=== PATIENT | female | born 1960 | race Caucasian/White ===

== ENCOUNTER 2016-10-17 05:43 | Emergency (ER) | payer OTHER ==
[~2016-10-17] VITALS: Wt 70.5 kg
[~2016-10-17 05:43] MED LIST: ALBU18HF INHALATION; AZIT250T94 PO; NO MEDS; PRED20TA PO
[2016-10-17] MEDS ORDERED: ALBUTEROL 0.5% (NEB) 2.5 MG/0.5 ML AMP INH STA ×2 (06:06→07:50)
[2016-10-17] MEDS ORDERED: predniSONE 20 MG TAB PO STA (06:06)
[2016-10-17] MEDS ORDERED: IPRATROPIUM (NEB) 0.5 MG/2.5 ML AMP INH STA (06:06)
[2016-10-17] MEDS ORDERED: ACETAMINOPHEN 500 MG TAB PO STA (06:13)
--- NOTE | 2016-10-17 06:13 | ERD ---
ER Documentation Chief Complaint Date/Time DATE: 10/17/16 TIME: 06:09 Chief Complaint SOB and cough since yesterday 0900 HPI This is a 55-year-old female who presents the emergency department today complaining of cough for 2 weeks and feeling some shortness of breath. Patient states that she saw her primary care doctor on October 13 and was given promethazine , and inhaler and loratadine. States that she has had no improvement. States he also feels some nasal congestion. Denies any fevers or chills. Denies any prolonged travel. Denies any calf pain. Denies any calf pain. Denies any recent sick contacts. ROS All systems reviewed and are negative except as per history of present illness. Medications Home Meds Active Scripts Acetaminophen* (Tylophen*) 500 Mg Capsule, 1 CAP PO Q6H Y for PAIN AND OR ELEVATED TEMP, #30 CAP Prov:SUNITA GONSALVES-C 10/17/16 Prednisone* (Prednisone*) 20 Mg Tab, 40 MG PO DAILY for 4 Days, TAB Prov:SUNITA GONSALVES-C 10/17/16 Cetirizine Hcl* (Zyrtec*) 10 Mg Capsule, 10 MG PO DAILY, #14 TAB.CHEW Prov:SUNITA GONSALVES PA-C 10/17/16 Fluticasone Propionate (Flonase Allergy Relief) 9.9 Ml [place].susp, 2 SPRAY NASAL DAILY, #1 BOTTLE TO EACH NOSTRIL Prov:SUNITA GONSALVESC 10/17/16 Guaifenesin-Dextromethorphan* (Robitussin* DM) 100MG/10MG/5ML Syrup, 10 ML PO Q6H for 5 Days, ML Prov:SUNITA GONSALVES-C 10/17/16 Azithromycin* (Zithromax*) 250 Mg Tablet, 250 MG PO .XIMENA DIRECTED, #6 TAB TAKE 500 MG (2 TABS) THE FIRST DAY THEN 250 MG (1 TAB) DAYS 2-5 Prov:SUNITA GONSALVES-C 10/17/16 Albuterol Sulfate* (Ventolin HFA*) 18 Gm Hfa.aer.ad, 2 PUFF INHALATION Q4H for 10 Days, INHALER Prov:KITRI VIRAMONTES MD 10/21/15 Prednisone* (Prednisone*) 20 Mg Tab, 40 MG PO DAILY for 4 Days, TAB Start 10/22/2015 Prov:KIRTI VIRAMONTES MD 10/21/15 Azithromycin* (Zithromax*) 250 Mg Tablet, 250 MG PO .ZPACK DIRECTED, #6 TAB TAKE 500 MG (2 TABS) THE FIRST DAY THEN 250 MG (1 TAB) DAYS 2-5 Prov:KIRTI VIRAMONTES MD 10/21/15 Reported Medications [No Meds] No Conflict Check 05/25/14 Allergies Allergies: Coded Allergies: No Known Allergy (Unverified , 07/01/12) PMhx/Soc Medical and Surgical Hx: pt denies Medical Hx History of Surgery: Yes ( x2) Anesthesia Reaction: No Hx Neurological Disorder: No Hx Respiratory Disorders: No Hx Cardiac Disorders: No Hx Psychiatric Problems: Yes (Depression. ) Hx Miscellaneous Medical Probl: No Hx Alcohol Use: No Hx Substance Use: No Hx Tobacco Use: No Smoking Status: Never smoker Physical Exam Vitals Vital Signs Date Time Temp Pulse Resp B/P Pulse Ox O2 Delivery O2 Flow Rate FiO2 10/17/16 08:09 100 18 96 21 10/17/16 06:26 75 24 95 21 10/17/16 05:49 98.0 82 24 135/63 92 Physical Exam Const: No acute distress Head: Atraumatic Eyes: Normal Conjunctiva ENT: Ears TMs normal. Nose no drainage. Throat no erythema no exudate Neck: Full range of motion..~ No meningismus. Resp: Coarse breath sounds in all lung fraire bilaterally with wheezing on right side. Cardio: Regular rate and rhythm, no murmurs Abd: Soft, non tender, non distended. Normal bowel sounds Skin: No petechiae or rashes Back: No midline or flank tenderness Ext: No cyanosis, or edema. No gastroc tenderness. No erythema or warmth. Neur: Awake and alert Psych: Normal Mood and Affect Results 24 hrs Current Medications Medications (Trade) Dose Ordered Sig/Gail Route PRN Reason Start Time Stop Time Status Last Admin Dose Admin Albuterol (Proventil 0.5% (Neb)) 10 mg ONCE STAT INH 10/17/16 06:06 10/17/16 06:09 DC 10/17/16 06:25 Ipratropium [place] (Atrovent 0.02% (Neb)) 1 mg ONCE STAT INH 10/17/16 06:06 10/17/16 06:09 DC 10/17/16 06:24 Prednisone (Prednisone) 60 mg ONCE STAT PO 10/17/16 06:06 10/17/16 06:09 DC 10/17/16 06:13 Acetaminophen (Tylenol Tab) 500 mg ONCE STAT PO 10/17/16 06:13 10/17/16 06:14 DC 10/17/16 06:15 Albuterol (Proventil 0.5% (Neb)) 5 mg ONCE STAT INH 10/17/16 07:50 10/17/16 07:51 Cancel Levalbuterol (Xopenex Neb) 5 mg ONCE STAT INH 10/17/16 08:02 10/17/16 08:03 DC 10/17/16 08:08 Procedures/MDM This 55-year-old female who presents the emergency department today complaining of cough for the past 2 weeks. Patient was persistently coughing here in the emergency department. She had coarse breath sounds in all lung fraire as well as some wheezing on the right side. I did give the patient 1 hour continuous breathing treatment. She was also given prednisone here in the emergency department and I did obtain a chest x-ray given the duration of cough patient's age. Chest x-ray shows no evidence for active cardiopulmonary disease. There is no focal consolidation, vascular congestion or pleural effusion. There is no pneumothorax Low suspicion for pneumonia, PE, abscess, pleural effusion, pneumothorax Patient symptoms at this time is consistent with cough and likely bronchitis. Patient's oxygen saturation was 92% at intake. Her oxygen saturation 97% prior to discharge. I have low suspicion for strep pharyngitis, peritonsillar abscess , retropharyngeal abscess, otitis media, PNA, sinusitis, abscess, meningitis, sepsis, or other acute infectious bacterial process. Patient was also complaining of a headache given her persistent cough. She was given Tylenol here in the emergency Patient will be discharged with azithromycin, Robitussin, Zyrtec and a short course of prednisone for home. She may continue using the inhaler that she has. At this time the patient is stable for discharge and outpatient management. Patient should follow up with their PCP in the next 1-2 days. They may return to the emergency department sooner for any persistent or worsening of symptoms. Patient understood and agreed with the plan. Note I was notified prior to discharge that patient was satting 91 or 92% on room air. I then did give the patient another continuous breathing treatment of Xopenex. Patient reported feeling significantly better. Patient's O2 sat was moving from 91-94%. Discussed the patient again with Dr. Puente and he feels that the patient stable for discharge and outpatient management. Departure Diagnosis: Primary Impression: Shortness of breath Additional Impression: Cough Condition: SUNITA Armstrong PA-C October 17, 2016 06:13
--- NOTE | 2016-10-17 07:38 | RADRPT ---
PROCEDURE: Chest. CLINICAL INDICATION: Shortness of breath. TECHNIQUE: Single frontal view of the chest was obtained. COMPARISON: 10/21/2015. FINDINGS: The cardiac silhouette is within normal limits. The aortic arch is unremarkable. There is no focal consolidation, vascular congestion or pleural effusion. There is no pneumothorax. IMPRESSION: No evidence for active cardiopulmonary disease. .Sony Pelaez MD, Date Time Electronically viewed and signed by .Sony Pelaez MD, on 10/17/2016 07:38 .T/
[2016-10-17] MEDS ORDERED: UDROBDM PO (07:42)
[2016-10-17] MEDS ORDERED: AZIT250T94 PO (07:42)
[2016-10-17] MEDS ORDERED: FLUT9.9S NASAL (07:42)
[2016-10-17] MEDS ORDERED: PRED20TA PO (07:43)
[2016-10-17] MEDS ORDERED: CETI10CA PO (07:43)
[2016-10-17] MEDS ORDERED: ACET500C5 PO (07:43)
[2016-10-17] MEDS ORDERED: LEVALBUTEROL (NEB) 1.25 MG/0.5 ML AMP INH STA (08:02)
== END 2016-10-17 09:40 | disposition home or self-care (01) ==
LOC: FTE 05:43
DX: R06.02 Shortness of breath (principal); R05 Cough
CPT/HCPCS: 71010; 94644; 94645; J7512; Z7502; Z7610

== ENCOUNTER 2018-11-03 07:48 | Emergency (ER) | payer OTHER ==
[~2018-11-03] VITALS: Wt 78.0 kg
[~2018-11-03 07:48] MED LIST changes: +ACET500C5 PO; +AZIT250T PO; -AZIT250T94 PO; +CETI10CA PO; +FLUT9.9S NASAL; +GUAI5SYR2 PO
[2018-11-03 07:50] VITALS: BP 148/74; RESP 18
[2018-11-03] MEDS ORDERED: ALBUTEROL 0.083% (NEB) 2.5 MG/3 ML AMP HHN STA (08:15)
[2018-11-03] MEDS ORDERED: DEXAMETHASONE 10 MG/ML 1 ML INJ IM ONE (08:30)
[2018-11-03] MEDS ORDERED: IPRATROPIUM (NEB) 0.5 MG/2.5 ML AMP HHN ONE (08:30)
[2018-11-03] MEDS ORDERED: PRED20TA PO (09:26)
[2018-11-03] MEDS ORDERED: D-ME473S2 PO (09:26)
[2018-11-03] MEDS ORDERED: ALBU8.5H8 INH (09:26)
--- NOTE | 2018-11-03 09:41 | ERD ---
ER Documentation Chief Complaint Chief Complaint COUGH X 2 WEEKS HPI 57-year-old female presenting with a cough x2 weeks. Patient states is productive. Has a mild runny nose but no fevers. Has not used medications for symptoms. Denies any leg swelling or chest pain. Medical history is hypercholesterolemia. NKDA. Surgical history denies. Social history denies ROS All systems reviewed and are negative except as per history of present illness. Medications Home Meds Active Scripts Dextromethorphan Hb-Promethazine Hcl* (Promethazine DM* Syrup) 473 Ml Syrup, 5 ML PO Q6 PRN for COUGH, #100 ML Prov:FREEMAN CRAMER PA-C 11/03/18 Albuterol Sulfate* (Proair HFA*) 8.5 Gm Hfa.aer.ad, 2 PUFF INH Q4, #1 INHALER Prov:FREEMAN CRAMER PA-C 11/03/18 Prednisone* (Prednisone*) 20 Mg Tab, 40 MG PO DAILY for 4 Days, TAB Prov:FREEMAN CARMER PA-C 11/03/18 Acetaminophen* (Tylophen*) 500 Mg Capsule, 1 CAP PO Q6H PRN for PAIN AND OR ELEVATED TEMP, #30 CAP Prov:SUNITA GONSALVES PA-C 10/17/16 Prednisone* (Prednisone*) 20 Mg Tab, 40 MG PO DAILY for 4 Days, TAB Prov:SUNITA GONSALVES PA-C 10/17/16 Cetirizine Hcl* (Zyrtec*) 10 Mg Capsule, 10 MG PO DAILY, #14 TAB.CHEW Prov:SUNITA GONSALVES PA-C 10/17/16 Fluticasone Propionate (Flonase Allergy Relief) 9.9 Ml [place].susp, 2 SPRAY NASAL DAILY, #1 BOTTLE TO EACH NOSTRIL Prov:SUNITA GONSALVES PA-C 10/17/16 Guaifenesin-Dextromethorphan* (Robitussin* DM) 100MG/10MG/5ML Syrup, 10 ML PO Q6H for 5 Days, ML Prov:SUNITA GONSALVES PA-C 10/17/16 Azithromycin* (Zithromax*) 250 Mg Tablet, 250 MG PO .ZPACK DIRECTED, #6 TAB TAKE 500 MG (2 TABS) THE FIRST DAY THEN 250 MG (1 TAB) DAYS 2-5 Prov:SUNITA GONSALVES PA-C 10/17/16 Albuterol Sulfate* (Ventolin HFA*) 18 Gm Hfa.aer.ad, 2 PUFF INHALATION Q4H for 10 Days, INHALER Prov:KIRTI VIRAMONTES MD 10/21/15 Prednisone* (Prednisone*) 20 Mg Tab, 40 MG PO DAILY for 4 Days, TAB Start 10/22/2015 Prov:KIRTI VIRAMONTES MD 10/21/15 Azithromycin* (Zithromax*) 250 Mg Tablet, 250 MG PO .ZPACK DIRECTED, #6 TAB TAKE 500 MG (2 TABS) THE FIRST DAY THEN 250 MG (1 TAB) DAYS 2-5 Prov:KIRTI VIRAMONTES MD 10/21/15 Reported Medications [No Meds] No Conflict Check 05/25/14 Allergies Allergies: Coded Allergies: No Known Allergy (Unverified , 07/01/12) PMhx/Soc History of Surgery: Yes ( x2) Anesthesia Reaction: No Hx Neurological Disorder: No Hx Respiratory Disorders: No Hx Cardiac Disorders: No Hx Psychiatric Problems: Yes (Depression. ) Hx Miscellaneous Medical Probl: No Hx Alcohol Use: No Hx Substance Use: No Hx Tobacco Use: No Smoking Status: Never smoker FmHx Family History: No diabetes, No coronary disease, No other Physical Exam Vitals Vital Signs Date Temp Pulse Resp B/P (MAP) Pulse Ox O2 O2 Flow FiO2 Time Delivery Rate 11/03/18 78 18 93 21 08:34 11/03/18 99.0 80 18 148/74 95 07:50 (98) Physical Exam GENERAL: The patient is well-appearing, well-nourished, in no acute distress HEENT: Atraumatic. Conjunctivae are pink. Pupils equal, round, and reactive to light. There is no scleral icterus. Tympanic membranes clear bilaterally. Oropharynx clear. NECK: C-spine is soft and supple. There is no meningismus. There is no cervical lymphadenopathy. CHEST: Diffuse wheezing heard on auscultation. No focal rhonchi. HEART: Regular rate and rhythm. No murmurs, clicks, rubs or gallops. No S3 or S4. Results 24 hrs Current Medications Medications Dose Sig/Gail Start Time Status Last (Trade) Ordered Route PRN Stop Time Admin Dose Reason Admin Albuterol 5 mg ONCE STAT 11/03/18 DC 11/03/18 (Proventil HHN 08:15 08:31 0.083% (Neb)) 11/03/18 08:17 Ipratropium 0.5 mg ONCE ONCE 11/03/18 DC 11/03/18 [place] HHN 08:30 08:31 (Atrovent 11/03/18 08:31 0.02% (Neb)) 10 mg ONCE ONCE 11/03/18 DC 11/03/18 Dexamethasone IM 08:30 08:21 (Decadron) 11/03/18 08:31 Procedures/MDM ER course: Albuterol and Atrovent breathing treatment given ED. Decadron given in ED. DIAGNOSTIC IMAGING REPORT Patient: MATILDA DASILVA : 1960 Age: 57 Sex: F MR #: [id number] DOS: 11/03/1815 Ordering MD: MARCUS CRAMER PA-C Location: [facility] Room/Bed: PROCEDURE: XR Chest. CLINICAL INDICATION: Cough TECHNIQUE: Single frontal chest x-ray. COMPARISON: CR CHEST 10/21/2015 FINDINGS: No acute infiltrate, pleural effusion or pneumothorax is identified. Cardiomediastinal silhouette is within normal limits. The osseous structures are remarkable for degenerative enthesopathy of the spine. IMPRESSION: 1. No evidence of acute cardiopulmonary process. MDM: 57-year-old female presenting with a wheezy bronchitis. I have low suspicion for pneumonia. I have low suspicion for respiratory distress and hypoxia. Patient is discharged with supportive medications. I do not feel antibiotics are indicated. Patient is told symptoms change or worsen to return immediately to the ER. All questions answered at discharge Departure Diagnosis: Primary Impression: Cough Condition: Stable Patient Instructions: Bronchitis With Wheezing (Adult) Referrals: COMM[facility] YOU HAVE RECEIVED A MEDICAL SCREENING EXAM AND THE RESULTS INDICATE THAT YOU DO NOT HAVE A CONDITION THAT REQUIRES URGENT TREATMENT IN THE EMERGENCY DEPARTMENT. FURTHER EVALUATION AND TREATMENT OF YOUR CONDITION CAN WAIT UNTIL YOU ARE SEEN IN YOUR DOCTORS OFFICE WITHIN THE NEXT 1-2 DAYS. IT IS YOUR RESPONSIBILITY TO MAKE AN APPOINTMENT FOR FOLOW-UP CARE. IF YOU HAVE A PRIMARY DOCTOR --you should call your primary doctor and schedule an appointment IF YOU DO NOT HAVE A PRIMARY DOCTOR YOU CAN CALL OUR PHYSICIAN REFERRAL HOTLINE AT IF YOU CAN NOT AFFORD TO SEE A PHYSICIAN YOU CAN CHOSE FROM THE FOLLOWING [facility] [address] [facility] [address] [facility] [facility] [address] [facility] [address] [facility] [facility] [address] [facility]. [facility] [address] Additional Instructions: FOLLOW UP WITH YOUR PRIMARY CARE PHYSICIAN TOMORROW.Return to this facility if you are not improving as expected. FREEMAN CRAMER PA-C November 03, 2018 09:41
[2018-11-03 10:00] VITALS: PULSE 90
== END 2018-11-03 10:00 | disposition home or self-care (01) ==
LOC: FTE 07:48
DX: R05 Cough (principal)
CPT/HCPCS: 71045; 94664; J1100; Z7610; 96372

== ENCOUNTER 2019-02-25 11:21 | Emergency (ER) | payer OTHER ==
[~2019-02-25] VITALS: Ht 154.9 cm; Wt 64.0 kg
[~2019-02-25 11:21] MED LIST changes: +ALBU8.5H8 INH; +ATOR40TA68 PO; +D-ME473S2 PO; +NAPR-985 PO
[2019-02-25 11:24] VITALS: Ht 154.9 cm; Wt 64.0 kg
[2019-02-25] MEDS ORDERED: KETOROLAC 15 MG INJ IM STA (14:22)
[2019-02-25 15:33] VITALS: BP 112/66; PULSE 64; RESP 16
== END 2019-02-25 15:51 | disposition home or self-care (01) ==
LOC: E/R 11:21
DX: M94.0 Chondrocostal junction syndrome [Tietze] (principal)
CPT/HCPCS: 71045; 93005; 96372; J1885; Z7502